=== PATIENT | male | born 1990 | race Hispanic/Latino ===

== ENCOUNTER 2022-12-22 14:41 | Emergency (ER) | payer OTHER ==
[2022-12-22] VITALS (18 sets, daily range): BP systolic 101–143; BP diastolic 58–92
[~2022-12-22] VITALS: Ht 177.8 cm; Wt 170.0 kg
[2022-12-22 15:03] LABS: BASO% 0.2 % (0-3); EOS% 0.4 % (0-8); HEMATOCRIT 44.3 % (39.0-50.0); HEMOGLOBIN 14.3 g/dl (14.0-18.0); IMMATURE GRANULOCYTES 1.3 % (0.0-5.0); LYMPH% 18.1 % (15-41); MEAN CELL VOLUME 86.9 fL CALC (80.0-100.0); MEAN CORPUSCULAR HGB CONC 32.3 g/dL CAL (32.0-36.0); MONO% 5.5 % (2-13); NEUT# 7.36 thou/uL (1.82-7.42); NEUT% 74.5 % (42-76); RED BLOOD COUNT 5.1 mill/uL (4.70-6.10); RED CELL DISTRI WIDTH 13.4 % (11.5-15.5)
[2022-12-22 15:23] LABS: ALBUMIN 5.1 g/dL (3.2-5.0); ALKALINE PHOSPHATASE 70 u/l (38-126); BILIRUBIN, TOTAL 0.4 mg/dL (0.2-1.3); BUN 19 mg/dL (9-20); BUN/CREATININE RATIO 19 (12-20 (CALC)); CARBON DIOXIDE 24 mmol/l (22-30); CHLORIDE 105 mmol/l (95-108); GFR FOR AFR.AMER. > 60 ML/MIN (>=60 (CALC)); GFR OTHER RACES > 60 ML/MIN (>=60 (CALC)); SGOT/AST 76 u/l (17-59); SODIUM 141 mmol/l (137-146); TOTAL PROTEIN 8.1 g/dL (6.3-8.2)
[2022-12-22 15:30] LABS: ANION GAP 17 (6-22 (CALC)); POTASSIUM 5.3 mmol/l (3.5-5.1)
== END 2022-12-22 20:10 | disposition short-term general hospital (02) | DRG 730 ==
LOC: ED 14:41
PROVIDERS: Family Medicine
DX: T19.4XXA Foreign body in penis, initial encounter (principal); T18.2XXA Foreign body in stomach, initial encounter; S30.853A Superficial foreign body of scrotum and testes, initial encounter; X78.9XXA Intentional self-harm by unspecified sharp object, initial encounter
CPT/HCPCS: Q9967